=== PATIENT | male | born 1935 | race Two or more races ===

== ENCOUNTER 2020-01-27 21:17 | Emergency (ER) | payer MEDICARE, OTHER ==
[~2020-01-27] VITALS: Ht 175.3 cm; Wt 82.6 kg
--- NOTE | 2020-01-27 21:30 | NUR ---
PT BIBA C/O GENERALIZED WEAKNESS, UNABLE TO SLEEP AND EAT, ABDOMINAL PAIN +DIARRHEA X 3 DAYS. PT HAS L ANKLE SWELLING AND REDNESS. PT AAOX4, VSS, RESPIRATIONS EVEN AND UNLABORED ON RA W/ NAD NOTED. PT CONNECTED TO THE ADJUSTMENT SUPERVISOR AND POX
--- NOTE | 2020-01-27 22:25 | NUR ---
BLOOD COLLECTED AND SENT TO LAB
[2020-01-27] MEDS ORDERED: IV NS 0.9% 1,000 ML BAG IV ONE (22:30)
--- NOTE | 2020-01-27 22:32 | NUR ---
XRAY AT BEDSIDE
[2020-01-27 22:45] LABS: BASOPHILS % (AUTO) 0.4 % (0.0-2.0); EOSINOPHILS % (AUTO) 0.2 % (0.0-6.0); HEMATOCRIT 50 % (39-51); HEMOGLOBIN 17.3 g/dL (13.5-17.5); LYMPHOCYTES # (AUTO) 0.7 /CMM (0.8-4.8); LYMPHOCYTES % (AUTO) 6.6 % (20.0-44.0); MEAN CORPUSCULAR HGB CONC 34 g/dl (31.0-36.0); MEAN CORPUSCULAR VOLUME 93 fL (80-96); MONOCYTES # (AUTO) 1.1 /CMM (0.1-1.30); MONOCYTES % (AUTO) 10.2 % (2.0-12.0); NEUTROPHILS # (AUTO) 8.6 /CMM (1.8-8.9); NEUTROPHILS % (AUTO) 82.6 % (43.0-81.0); PLATELET COUNT (AUTO) 175 /CMM (150-450); RED BLOOD CELL COUNT(AUTO) 5.42 MIL/uL (4.5-6.0); WHITE BLOOD COUNT (AUTO) 10.5 K/uL (4.3-11.0)
[2020-01-27] MEDS ORDERED: IOHEXOL-300 100 ML VIAL IV ONE (22:54)
[2020-01-27] MEDS ORDERED: CT SWABBABLE VALVE TRANS SET 1 EA INFUS.SET MC ONE (22:54)
[2020-01-27 22:55] LABS: CALCIUM, SERUM 9.8 mg/dL (8.5-10.1); CARBON DIOXIDE 27 mmol/L (21-32); CHLORIDE 101 mmol/L (98-107); CREATININE 2.1 mg/dL (0.6-1.3); GLUCOSE 214 mg/dL (74-106); POTASSIUM 4.2 mmol/L (3.5-5.1); SODIUM SERUM 136 mmol/L (136-145); UREA NITROGEN, BLOOD 35 mg/dL (7-18)
[2020-01-27] MEDS ORDERED: IV NS 0.9% 0 ML IV ONE (22:55)
[2020-01-27 23:06] LABS: ALANINE AMINOTRANSFERASE 19 U/L (12-78); ALBUMIN 3.6 g/dL (3.4-5.0); ALKALINE PHOSPHATASE 56 U/L (46-116); ASPARTATE AMINOTRANSFERASE 16 U/L (15-37); BILIRUBIN,DIRECT 0.5 mg/dL (0.0-0.2); LIPASE 61 U/L (73-393); TOTAL PROTEIN, SERUM 6.9 g/dL (6.4-8.2)
--- NOTE | 2020-01-27 23:06 | NUR ---
DR STARKS [phone]
--- NOTE | 2020-01-28 00:19 | NUR ---
URINE COLLECTED AND SENT TO LAB
[2020-01-28 00:27] LABS: APPEARANCE,URINE Clear (CLEAR); BILIRUBIN,URINE SMALL (NEGATIVE); BLOOD, URINE Moderate Ery/uL (NEGATIVE); COLOR,URINE Yellow (YELLOW); KETONES,URINE Negative (NEGATIVE); LEUKOCYTE ESTERASE ,URINE Negative (NEGATIVE); NITRITE, URINE Negative (NEGATIVE); PROTEIN,URINE 100 mg/dl (NEGATIVE); UGLUCOSE >=1000 mg/dL (NEGATIVE); UROBILINOGEN,URINE 0.2 EU/dL (0.2)
[2020-01-28 00:45] LABS: BACTERIA,URINE None seen /HPF (None Seen); SQUAMOUS EPITHELIAL CELL,UR Few /HPF (None Seen); URIC ACID CRYSTALS,URINE Many /HPF (None Seen)
[2020-01-28 00:46] LABS: MUCUS,URINE Moderate /LPF (None Seen)
[2020-01-28] MEDS ORDERED: oxyCODONE/APAP (5/325 MG) 1 UDTAB TABLET PO ONE (01:00)
[2020-01-28] MEDS ORDERED: oxyCODONE/APAP (5/325 MG) 1 UDTAB TABLET ONE (01:25)
--- NOTE | 2020-01-28 01:38 | NUR ---
Patient discharged to home in stable condition. Written and verbal after care instructions given. Patient verbalizes understanding of instruction.pt. ambulatory with a steady gait
[2020-01-28 01:39] VITALS: BP 121/84
== END 2020-01-28 01:39 | disposition home or self-care (01) ==
LOC: ER 21:18
DX: S82.442A Displaced spiral fracture of shaft of left fibula, initial encounter for closed fracture (principal); S82.892A Other fracture of left lower leg, initial encounter for closed fracture; N20.0 Calculus of kidney; R19.7 Diarrhea, unspecified; Z98.890 Other specified postprocedural states; Z60.2 Problems related to living alone; W18.39XA Other fall on same level, initial encounter; Y93.89 Activity, other specified; Y92.89 Other specified places as the place of occurrence of the external cause; Y99.8 Other external cause status
CPT/HCPCS: 36415; 73610; 74176; 80048; 80076; 81001; 83690; 84484; 85025; 93005; 96360; 99285; J7030; 81000-TC; J7050; Q9967

== ENCOUNTER 2020-08-10 16:22 | Inpatient (IN) | payer BC, MEDICARE, OTHER ==
[~2020-08-10] VITALS: Ht 172.7 cm; Wt 59.9 kg
[2020-08-10] MEDS ORDERED: IV NS 0.9% 1,000 ML BAG IV ONE (17:00)
[2020-08-10 17:05] LABS: BASOPHILS % (AUTO) 0.4 % (0.0-2.0); HEMATOCRIT 53 % (39-51); HEMOGLOBIN 18.1 g/dL (13.5-17.5); LYMPHOCYTES # (AUTO) 0.5 /CMM (0.8-4.8); LYMPHOCYTES % (AUTO) 6.8 % (20.0-44.0); MEAN CORPUSCULAR HGB CONC 34 g/dl (31.0-36.0); MEAN CORPUSCULAR VOLUME 93 fL (80-96); MONOCYTES # (AUTO) 0.4 /CMM (0.1-1.30); MONOCYTES % (AUTO) 5.2 % (2.0-12.0); NEUTROPHILS # (AUTO) 6.8 /CMM (1.8-8.9); NEUTROPHILS % (AUTO) 87.6 % (43.0-81.0); PLATELET COUNT (AUTO) 225 /CMM (150-450); RED BLOOD CELL COUNT(AUTO) 5.73 MIL/uL (4.5-6.0); WHITE BLOOD COUNT (AUTO) 7.8 K/uL (4.3-11.0)
[2020-08-10] MEDS ORDERED: TAMS-12 PO (17:17)
[2020-08-10] MEDS ORDERED: TRAZ-182 PO (17:17)
[2020-08-10] MEDS ORDERED: CLOP75TA15 PO (17:17)
[2020-08-10] MEDS ORDERED: ROSU10TA2 PO (17:17)
[2020-08-10] MEDS ORDERED: DULO60CA45 PO (17:17)
[2020-08-10] MEDS ORDERED: AMPH20TA3 PO (17:17)
[2020-08-10] MEDS ORDERED: APIX2.5T PO (17:17)
[2020-08-10] MEDS ORDERED: RANO10003 PO (17:17)
[2020-08-10] MEDS ORDERED: EMPA1TAB9 PO (17:17)
[2020-08-10 17:20] LABS: ALANINE AMINOTRANSFERASE 27 U/L (12-78); ALBUMIN 3.5 g/dL (3.4-5.0); ALKALINE PHOSPHATASE 61 U/L (46-116); ASPARTATE AMINOTRANSFERASE 57 U/L (15-37); BILIRUBIN,DIRECT 0.5 mg/dL (0.0-0.2); BILIRUBIN,TOTAL 1.7 mg/dL (0.2-1.0); CALCIUM, SERUM 10.2 mg/dL (8.5-10.1); CARBON DIOXIDE 25 mmol/L (21-32); CHLORIDE 97 mmol/L (98-107); CREATININE 1.5 mg/dL (0.6-1.3); GLUCOSE 120 mg/dL (74-106); LIPASE 108 U/L (73-393); POTASSIUM 4.5 mmol/L (3.5-5.1); SODIUM SERUM 135 mmol/L (136-145); TOTAL PROTEIN, SERUM 8.5 g/dL (6.4-8.2); UREA NITROGEN, BLOOD 39 mg/dL (7-18)
[2020-08-10 17:40] LABS: BAND % (MANUAL) 3 % (0.0-5.0); LYMPHOCYTES % (MANUAL) 6 % (16-48); MONOCYTES % (MANUAL) 3 % (0-11.0); NEUTROPHILS % (MANUAL) 88 (42-76)
[2020-08-10] MEDS ORDERED: ASPIRIN 81 MG TAB.CHEW PO ONE (19:00)
[2020-08-10] MEDS ORDERED: HYDROCODONE/APAP 5/325MG TABLET PO PRN (20:00)
[2020-08-10] MEDS ORDERED: ZOLPIDEM TARTRATE 5 MG TABLET PO PRN (20:00)
[2020-08-10] MEDS ORDERED: ACETAMINOPHEN 325 MG TABLET PO PRN (20:00)
[2020-08-10] MEDS ORDERED: ONDANSETRON HCL/PF 4 MG/2 ML VIAL IVP PRN (20:00)
[2020-08-10] MEDS: RANOLAZINE 500 MG TAB.ER.12H PO SCH (20:00)
[2020-08-10] MEDS ORDERED: MAGNESIUM HYDROXIDE 30 ML UDC PO PRN (20:00)
[2020-08-10 20:42] LABS: D-DIMER 3.72 mg/L(FEU (0.17-0.50)
[2020-08-10] MEDS ORDERED: Medication Not On Formulary EA (Amphet Asp/Amphet/D-Amphet (Adderall 20 Mg Tablet) 20 MG PO SCH (21:00)
[2020-08-10] MEDS ORDERED: HEPARIN SODIUM, PORCINE 5000 UNITS/1 ML VIAL SQ SCH (21:00)
[2020-08-10 21:54] LABS: BILIRUBIN,URINE SMALL (NEGATIVE); COLOR,URINE YELLOW (YELLOW); LEUKOCYTE ESTERASE ,URINE Negative (NEGATIVE); NITRITE, URINE Negative (NEGATIVE); PH,URINE 5.5 (5.0-8.0); PROTEIN,URINE >=300 mg/dl (NEGATIVE); UGLUCOSE Negative (NEGATIVE); UROBILINOGEN,URINE 0.2 EU/dL (0.2)
[2020-08-10 21:55] VITALS: BP 132/78
[2020-08-10 22:03] LABS: BACTERIA,URINE Few /HPF (None Seen); SQUAMOUS EPITHELIAL CELL,UR Few /HPF (None Seen); WBC,URINE 0-2 /HPF (0-3)
[2020-08-10] MEDS: ATORVASTATIN 10 MG TABLET PO SCH (23:14)
[2020-08-10] MEDS: IV NS 0.9% 1,000 ML IV PRN (23:15)
[2020-08-10] MEDS: TRAZODONE 50 MG TABLET PO SCH (23:15)
[2020-08-11] VITALS (7 sets, daily range): BP systolic 103–158; BP diastolic 44–78
[2020-08-11 06:27] LABS: BASOPHILS % (AUTO) 0.4 % (0.0-2.0); HEMATOCRIT 44 % (39-51); HEMOGLOBIN 15.1 g/dL (13.5-17.5); LYMPHOCYTES # (AUTO) 0.4 /CMM (0.8-4.8); LYMPHOCYTES % (AUTO) 6.4 % (20.0-44.0); MEAN CORPUSCULAR HGB CONC 34 g/dl (31.0-36.0); MEAN CORPUSCULAR VOLUME 93 fL (80-96); MONOCYTES # (AUTO) 0.3 /CMM (0.1-1.30); MONOCYTES % (AUTO) 5.2 % (2.0-12.0); NEUTROPHILS # (AUTO) 5.6 /CMM (1.8-8.9); PLATELET COUNT (AUTO) 190 /CMM (150-450); RED BLOOD CELL COUNT(AUTO) 4.76 MIL/uL (4.5-6.0); WHITE BLOOD COUNT (AUTO) 6.4 K/uL (4.3-11.0)
[2020-08-11 07:17] LABS: CALCIUM, SERUM 9.5 mg/dL (8.5-10.1); CREATININE 1.3 mg/dL (0.6-1.3); MAGNESIUM 1.9 mg/dL (1.8-2.4); PHOSPHORUS 3.2 mg/dL (2.5-4.9); POTASSIUM 4.2 mmol/L (3.5-5.1)
[2020-08-11] MEDS: TAMSULOSIN 0.4 MG CAP.SR.24H PO SCH (08:34)
[2020-08-11] MEDS: DULOXETINE HCL 30 MG CAPSULE.DR PO SCH (08:34)
[2020-08-11] MEDS: APIXABAN 2.5 MG TABLET PO SCH ×2 (08:35→16:48)
[2020-08-11] MEDS: IV NS 0.9% 1,000 ML IV PRN ×2 (09:56→19:35)
[2020-08-11] MEDS: RANOLAZINE 500 MG TAB.ER.12H PO SCH ×2 (10:08→16:48)
[2020-08-11] MEDS ORDERED: Z GUARD REMEDY 2 OZ OINT TP PRN (10:30)
[2020-08-11] MEDS: ENSURE ENLIVE CHOC 237 ML CAN PO SCH ×2 (11:02→16:49)
[2020-08-11] MEDS: Z GUARD REMEDY 2 OZ OINT TP SCH (11:03)
[2020-08-11 12:17] LABS: ALBUMIN 2.4 g/dL (3.4-5.0); BILIRUBIN,DIRECT 0.5 mg/dL (0.0-0.2); BILIRUBIN,TOTAL 1.3 mg/dL (0.2-1.0); TOTAL PROTEIN, SERUM 5.9 g/dL (6.4-8.2)
[2020-08-11] MEDS: ATORVASTATIN 10 MG TABLET PO SCH (22:05)
[2020-08-11] MEDS: TRAZODONE 50 MG TABLET PO SCH (22:05)
[2020-08-12] VITALS (7 sets, daily range): BP systolic 100–148; BP diastolic 59–77
[2020-08-12] MEDS: IV NS 0.9% 1,000 ML IV PRN ×2 (05:41→15:54)
[2020-08-12 06:04] LABS: CALCIUM, SERUM 9.4 mg/dL (8.5-10.1); CREATININE 1.3 mg/dL (0.6-1.3); MAGNESIUM 1.9 mg/dL (1.8-2.4); PHOSPHORUS 2.9 mg/dL (2.5-4.9)
[2020-08-12 06:05] LABS: BASOPHILS % (AUTO) 0.5 % (0.0-2.0); HEMATOCRIT 42 % (39-51); HEMOGLOBIN 14.2 g/dL (13.5-17.5); LYMPHOCYTES # (AUTO) 0.4 /CMM (0.8-4.8); LYMPHOCYTES % (AUTO) 5.5 % (20.0-44.0); MEAN CORPUSCULAR HGB CONC 34 g/dl (31.0-36.0); MEAN CORPUSCULAR VOLUME 92 fL (80-96); MONOCYTES # (AUTO) 0.3 /CMM (0.1-1.30); NEUTROPHILS # (AUTO) 5.7 /CMM (1.8-8.9); PLATELET COUNT (AUTO) 177 /CMM (150-450); RED BLOOD CELL COUNT(AUTO) 4.52 MIL/uL (4.5-6.0); WHITE BLOOD COUNT (AUTO) 6.4 K/uL (4.3-11.0)
[2020-08-12] MEDS: ENSURE ENLIVE CHOC 237 ML CAN PO SCH ×2 (09:17→17:13)
[2020-08-12] MEDS: TAMSULOSIN 0.4 MG CAP.SR.24H PO SCH (09:18)
[2020-08-12] MEDS: DULOXETINE HCL 30 MG CAPSULE.DR PO SCH (09:18)
[2020-08-12] MEDS: RANOLAZINE 500 MG TAB.ER.12H PO SCH ×2 (09:19→16:37)
[2020-08-12] MEDS: CLOPIDOGREL BISULFATE 75 MG TABLET PO SCH (09:21)
[2020-08-12] MEDS: APIXABAN 2.5 MG TABLET PO SCH ×2 (09:28→17:02)
[2020-08-12] MEDS: Z GUARD REMEDY 2 OZ OINT TP SCH (09:29)
[2020-08-12] MEDS: CARVEDILOL 3.125 MG TABLET PO SCH ×2 (10:29→16:37)
[2020-08-12] MEDS: AZITHROMYCIN 250 MG TABLET PO SCH (20:16)
[2020-08-12] MEDS: CEFTRIAXONE 1 G in IV D5W 50 ML IV SCH (21:01)
[2020-08-12] MEDS: TRAZODONE 50 MG TABLET PO SCH (21:02)
[2020-08-12] MEDS: ATORVASTATIN 10 MG TABLET PO SCH (21:02)
[2020-08-13] VITALS (7 sets, daily range): BP systolic 102–141; BP diastolic 61–90
[2020-08-13] MEDS: IV NS 0.9% 1,000 ML IV PRN ×2 (00:39→13:04)
[2020-08-13] MEDS ORDERED: KEY,NONCONTROL,TO KEEP IN PYXI 1 EA MC ONE ×3 (07:47→13:43)
[2020-08-13] MEDS: ENSURE ENLIVE CHOC 237 ML CAN PO SCH ×2 (08:52→16:52)
[2020-08-13] MEDS: DULOXETINE HCL 30 MG CAPSULE.DR PO SCH (09:14)
[2020-08-13] MEDS: Z GUARD REMEDY 2 OZ OINT TP SCH (09:14)
[2020-08-13] MEDS: AMPHETAMINE SALTS 20 MG PO SCH ×2 (09:14→13:52)
[2020-08-13] MEDS: CARVEDILOL 3.125 MG TABLET PO SCH ×2 (09:14→16:48)
[2020-08-13] MEDS: TAMSULOSIN 0.4 MG CAP.SR.24H PO SCH (09:14)
[2020-08-13] MEDS: RANOLAZINE 500 MG TAB.ER.12H PO SCH ×2 (09:14→16:55)
[2020-08-13] MEDS: APIXABAN 2.5 MG TABLET PO SCH ×2 (09:15→16:49)
[2020-08-13] MEDS: AZITHROMYCIN 250 MG TABLET PO SCH (19:51)
[2020-08-13] MEDS: CEFTRIAXONE 1 G in IV D5W 50 ML IV SCH (19:52)
[2020-08-13] MEDS: TRAZODONE 50 MG TABLET PO SCH (21:23)
[2020-08-13] MEDS: ATORVASTATIN 10 MG TABLET PO SCH (21:23)
[2020-08-14] VITALS (32 sets, daily range): BP systolic 66–170; BP diastolic 38–113
[2020-08-14] MEDS: IV NS 0.9% 1,000 ML IV PRN (05:01)
[2020-08-14 06:51] LABS: BASOPHILS % (AUTO) 0.1 % (0.0-2.0); EOSINOPHILS % (AUTO) 0.2 % (0.0-6.0); HEMATOCRIT 43 % (39-51); HEMOGLOBIN 14.5 g/dL (13.5-17.5); LYMPHOCYTES # (AUTO) 0.3 /CMM (0.8-4.8); LYMPHOCYTES % (AUTO) 3.9 % (20.0-44.0); MEAN CORPUSCULAR HGB CONC 34 g/dl (31.0-36.0); MEAN CORPUSCULAR VOLUME 93 fL (80-96); MONOCYTES # (AUTO) 0.5 /CMM (0.1-1.30); MONOCYTES % (AUTO) 6.2 % (2.0-12.0); NEUTROPHILS # (AUTO) 7.9 /CMM (1.8-8.9); NEUTROPHILS % (AUTO) 89.6 % (43.0-81.0); PLATELET COUNT (AUTO) 205 /CMM (150-450); RED BLOOD CELL COUNT(AUTO) 4.61 MIL/uL (4.5-6.0); WHITE BLOOD COUNT (AUTO) 8.8 K/uL (4.3-11.0)
[2020-08-14 07:13] LABS: CALCIUM, SERUM 9.7 mg/dL (8.5-10.1); CREATININE 1.2 mg/dL (0.6-1.3); MAGNESIUM 1.8 mg/dL (1.8-2.4); PHOSPHORUS 3.3 mg/dL (2.5-4.9); POTASSIUM 4.6 mmol/L (3.5-5.1)
[2020-08-14] MEDS: ENSURE ENLIVE CHOC 237 ML CAN PO SCH (08:41)
[2020-08-14] MEDS: DULOXETINE HCL 30 MG CAPSULE.DR PO SCH (08:41)
[2020-08-14] MEDS: TAMSULOSIN 0.4 MG CAP.SR.24H PO SCH (08:41)
[2020-08-14] MEDS: RANOLAZINE 500 MG TAB.ER.12H PO SCH ×2 (08:41→17:00)
[2020-08-14] MEDS: CLOPIDOGREL BISULFATE 75 MG TABLET PO SCH (08:42)
[2020-08-14] MEDS: CARVEDILOL 3.125 MG TABLET PO SCH ×2 (08:42→17:00)
[2020-08-14] MEDS: APIXABAN 2.5 MG TABLET PO SCH ×2 (08:43→18:37)
[2020-08-14] MEDS: Z GUARD REMEDY 2 OZ OINT TP SCH (08:44)
[2020-08-14] MEDS: AMPHETAMINE SALTS 20 MG PO SCH (09:58)
[2020-08-14] MEDS ORDERED: FUROSEMIDE 20 MG/2 ML VIAL IV ONE (10:30)
[2020-08-14 10:39] LABS: ABG BASE EXCESS -3.7 mmol/L; ABG OXYGEN SATURATION 98.7 % (92.0-98.5); ABG PCO2 39.6 mmHg (35.0-45.0); ABG PH 7.352 (7.350-7.450); ABG PO2 151.3 mmHg (75.0-100.0); AaDO2 522.1 mmHg; COHb 0.8 % (0.5-1.5); MetHb 0.3 % (0.0-1.5); O2Hb 97.6 % (94.0-97.0); SITE, ABG Left Radial; VENT MODE, BG NRB 100%
[2020-08-14] MEDS: DEXAMETHASONE SOD PHOSPHATE 10 MG/ML VIAL IV SCH (11:47)
[2020-08-14] MEDS: LISINOPRIL (5MG) 5 MG TABLET PO SCH (11:51)
[2020-08-14 12:37] LABS: ABG BASE EXCESS -4.7 mmol/L; ABG OXYGEN SATURATION 83.9 % (92.0-98.5); ABG PCO2 34.5 mmHg (35.0-45.0); ABG PH 7.373 (7.350-7.450); ABG PO2 49.3 mmHg (75.0-100.0); AaDO2 225.1 mmHg; COHb 1.2 % (0.5-1.5); MetHb 0.1 % (0.0-1.5); O2Hb 82.8 % (94.0-97.0); SITE, ABG Left Radial; VENT MODE, BG N/C 6LPM
[2020-08-14] MEDS ORDERED: REMDESIVIR (CHARGED) 200 MG, *LOADING DOSE 1 EA in IV NS 0.9% 210 ML IV ONE (13:00)
[2020-08-14] MEDS ORDERED: BUMETANIDE INJ 4 MG in IV NS 0.9% 24 ML IV ONE (14:00)
[2020-08-14] MEDS ORDERED: BUMETANIDE INJ 4 MG in IV D5W 24 ML IV ONE (14:00)
[2020-08-14] MEDS ORDERED: SUCCINYLCHOLINE CHLORIDE 20 MG/ML VIAL ONE (14:01)
[2020-08-14] MEDS ORDERED: ETOMIDATE 2 MG/ML VIAL ONE (14:01)
[2020-08-14] MEDS ORDERED: IV NS 0.9% 500 ML IV ONE (15:30)
[2020-08-14 15:31] LABS: ABG BASE EXCESS -4.9 mmol/L; ABG OXYGEN SATURATION 99.2 % (92.0-98.5); ABG PCO2 29.4 mmHg (35.0-45.0); ABG PH 7.414 (7.350-7.450); ABG PO2 241.8 mmHg (75.0-100.0); AaDO2 441.8 mmHg; COHb 0.7 % (0.5-1.5); MetHb 0.3 % (0.0-1.5); O2Hb 98.2 % (94.0-97.0); PEEP,BG 5 cm H2O; SITE, ABG Left Radial; VENT MODE, BG AC 100%; VT, ABG 500 mL
[2020-08-14] MEDS: NOREPINEPHRINE 8 MG in IV NS 0.9% 242 ML IV PRN (15:48)
[2020-08-14] MEDS ORDERED: DOBUTamine 500 MG in IV D5W 210 ML IV PRN (16:00)
[2020-08-14] MEDS: PROPOFOL 10MG/ML 50ML 50 ML IV PRN ×3 (18:32→23:08)
[2020-08-14] MEDS: AZITHROMYCIN 250 MG TABLET PO SCH (20:22)
[2020-08-14] MEDS: CEFTRIAXONE 1 G in IV D5W 50 ML IV SCH (21:04)
[2020-08-14] MEDS: ATORVASTATIN 10 MG TABLET PO SCH (21:46)
[2020-08-15] VITALS (86 sets, daily range): BP systolic 92–127; BP diastolic 45–72
[2020-08-15] MEDS: PROPOFOL 10MG/ML 50ML 50 ML IV PRN ×9 (01:37→22:34)
[2020-08-15 04:40] LABS: BASOPHILS % (AUTO) 0.3 % (0.0-2.0); HEMATOCRIT 40 % (39-51); HEMOGLOBIN 13.7 g/dL (13.5-17.5); LYMPHOCYTES # (AUTO) 0.5 /CMM (0.8-4.8); LYMPHOCYTES % (AUTO) 4.8 % (20.0-44.0); MEAN CORPUSCULAR HGB CONC 34 g/dl (31.0-36.0); MEAN CORPUSCULAR VOLUME 93 fL (80-96); MONOCYTES # (AUTO) 0.8 /CMM (0.1-1.30); MONOCYTES % (AUTO) 7.4 % (2.0-12.0); NEUTROPHILS # (AUTO) 8.9 /CMM (1.8-8.9); NEUTROPHILS % (AUTO) 87.5 % (43.0-81.0); PLATELET COUNT (AUTO) 198 /CMM (150-450); WHITE BLOOD COUNT (AUTO) 10.2 K/uL (4.3-11.0)
[2020-08-15 04:48] LABS: ALANINE AMINOTRANSFERASE 31 U/L (12-78); ALBUMIN 2.2 g/dL (3.4-5.0); ALKALINE PHOSPHATASE 81 U/L (46-116); ASPARTATE AMINOTRANSFERASE 45 U/L (15-37); BILIRUBIN,DIRECT 0.2 mg/dL (0.0-0.2); BILIRUBIN,TOTAL 0.7 mg/dL (0.2-1.0); CARBON DIOXIDE 23 mmol/L (21-32); CHLORIDE 106 mmol/L (98-107); CREATININE 1.5 mg/dL (0.6-1.3); GLUCOSE 250 mg/dL (74-106); MAGNESIUM 1.8 mg/dL (1.8-2.4); PHOSPHORUS 3.6 mg/dL (2.5-4.9); POTASSIUM 4.4 mmol/L (3.5-5.1); SODIUM SERUM 140 mmol/L (136-145); UREA NITROGEN, BLOOD 39 mg/dL (7-18)
[2020-08-15 05:32] LABS: ABG BASE EXCESS -0.4 mmol/L; ABG OXYGEN SATURATION 95.6 % (92.0-98.5); ABG PCO2 39.7 mmHg (35.0-45.0); ABG PH 7.403 (7.350-7.450); ABG PO2 83.7 mmHg (75.0-100.0); AaDO2 228.1 mmHg; COHb 1.1 % (0.5-1.5); MetHb 0.3 % (0.0-1.5); O2Hb 94.3 % (94.0-97.0); PEEP,BG 5 cm H2O; SITE, ABG Right Radial; VENT MODE, BG AC 16 500 50% +5; VT, ABG 500 mL
[2020-08-15] MEDS: ENSURE ENLIVE CHOC 237 ML CAN PO SCH ×2 (08:00→16:26)
[2020-08-15] MEDS: CARVEDILOL 3.125 MG TABLET PO SCH ×2 (09:00→16:26)
[2020-08-15] MEDS: LISINOPRIL (5MG) 5 MG TABLET PO SCH (09:00)
[2020-08-15] MEDS: DEXAMETHASONE SOD PHOSPHATE 10 MG/ML VIAL IV SCH (09:11)
[2020-08-15] MEDS: RANOLAZINE 500 MG TAB.ER.12H PO SCH ×2 (09:11→16:26)
[2020-08-15] MEDS: DULOXETINE HCL 30 MG CAPSULE.DR PO SCH (09:11)
[2020-08-15] MEDS: TAMSULOSIN 0.4 MG CAP.SR.24H PO SCH (09:11)
[2020-08-15] MEDS: Z GUARD REMEDY 2 OZ OINT TP SCH (09:12)
[2020-08-15] MEDS: APIXABAN 2.5 MG TABLET PO SCH ×2 (09:14→16:29)
[2020-08-15] MEDS ORDERED: REMDESIVIR (CHARGED) 100 MG in IV NS 0.9% 230 ML IV SCH (10:30)
[2020-08-15] MEDS: AMPHETAMINE SALTS 20 MG PO SCH ×2 (10:30→14:15)
[2020-08-15] MEDS: NOREPINEPHRINE 8 MG in IV NS 0.9% 242 ML IV PRN (10:39)
[2020-08-15] MEDS ORDERED: REMDESIVIR (CHARGED) 100 MG in IV NS 0.9% 100 ML IV SCH (13:00)
[2020-08-15] MEDS ORDERED: BUMETANIDE INJ 4 MG in IV D5W 24 ML IV ONE (16:00)
[2020-08-15] MEDS: CEFTRIAXONE 1 G in IV D5W 50 ML IV SCH (21:03)
[2020-08-15] MEDS: ATORVASTATIN 10 MG TABLET PO SCH (21:25)
[2020-08-15] MEDS: AZITHROMYCIN 250 MG TABLET PO SCH (21:25)
[2020-08-16] VITALS (95 sets, daily range): BP systolic 102–140; BP diastolic 54–79
[2020-08-16] MEDS: PROPOFOL 10MG/ML 50ML 50 ML IV PRN ×11 (01:19→23:03)
[2020-08-16 05:21] LABS: BASOPHILS % (AUTO) 0.2 % (0.0-2.0); EOSINOPHILS % (AUTO) 0.1 % (0.0-6.0); HEMATOCRIT 40 % (39-51); HEMOGLOBIN 13.7 g/dL (13.5-17.5); LYMPHOCYTES # (AUTO) 0.5 /CMM (0.8-4.8); LYMPHOCYTES % (AUTO) 4.4 % (20.0-44.0); MEAN CORPUSCULAR HGB CONC 34 g/dl (31.0-36.0); MEAN CORPUSCULAR VOLUME 92 fL (80-96); MONOCYTES # (AUTO) 0.6 /CMM (0.1-1.30); MONOCYTES % (AUTO) 5.5 % (2.0-12.0); NEUTROPHILS # (AUTO) 10.1 /CMM (1.8-8.9); NEUTROPHILS % (AUTO) 89.8 % (43.0-81.0); RED BLOOD CELL COUNT(AUTO) 4.39 MIL/uL (4.5-6.0); WHITE BLOOD COUNT (AUTO) 11.3 K/uL (4.3-11.0)
[2020-08-16 05:43] LABS: ALANINE AMINOTRANSFERASE 29 U/L (12-78); ALBUMIN 2.1 g/dL (3.4-5.0); ALKALINE PHOSPHATASE 77 U/L (46-116); ASPARTATE AMINOTRANSFERASE 31 U/L (15-37); BILIRUBIN,DIRECT 0.2 mg/dL (0.0-0.2); BILIRUBIN,TOTAL 0.5 mg/dL (0.2-1.0); CALCIUM, SERUM 9.7 mg/dL (8.5-10.1); CARBON DIOXIDE 28 mmol/L (21-32); CHLORIDE 106 mmol/L (98-107); CREATININE 1.7 mg/dL (0.6-1.3); GLUCOSE 214 mg/dL (74-106); POTASSIUM 4.1 mmol/L (3.5-5.1); SODIUM SERUM 143 mmol/L (136-145); UREA NITROGEN, BLOOD 49 mg/dL (7-18)
[2020-08-16 05:45] LABS: PLATELET COUNT (AUTO) 192 /CMM (150-450)
[2020-08-16 08:37] LABS: CALCIUM, SERUM 9.7 mg/dL (8.5-10.1); CARBON DIOXIDE 28 mmol/L (21-32); CHLORIDE 106 mmol/L (98-107); CREATININE 1.8 mg/dL (0.6-1.3); GLUCOSE 194 mg/dL (74-106); POTASSIUM 3.9 mmol/L (3.5-5.1); SODIUM SERUM 144 mmol/L (136-145); UREA NITROGEN, BLOOD 52 mg/dL (7-18)
[2020-08-16] MEDS: RANOLAZINE 500 MG TAB.ER.12H PO SCH (09:00)
[2020-08-16] MEDS: DULOXETINE HCL 30 MG CAPSULE.DR PO SCH (09:21)
[2020-08-16] MEDS: CLOPIDOGREL BISULFATE 75 MG TABLET PO SCH (09:21)
[2020-08-16] MEDS: TAMSULOSIN 0.4 MG CAP.SR.24H PO SCH (09:21)
[2020-08-16] MEDS: ENSURE ENLIVE CHOC 237 ML CAN PO SCH ×2 (09:22→17:23)
[2020-08-16] MEDS: Z GUARD REMEDY 2 OZ OINT TP SCH (09:22)
[2020-08-16] MEDS: APIXABAN 2.5 MG TABLET PO SCH ×2 (09:22→17:23)
[2020-08-16] MEDS: DEXAMETHASONE SOD PHOSPHATE 10 MG/ML VIAL IV SCH (09:22)
[2020-08-16] MEDS: AMPHETAMINE SALTS 20 MG PO SCH ×2 (09:37→13:37)
[2020-08-16] MEDS ORDERED: REMDESIVIR (CHARGED) 100 MG in IV NS 0.9% 100 ML IV SCH (12:00)
[2020-08-16] MEDS: CEFTRIAXONE 1 G in IV D5W 50 ML IV SCH (20:38)
[2020-08-16] MEDS: AZITHROMYCIN 250 MG TABLET PO SCH (20:38)
[2020-08-16] MEDS: ATORVASTATIN 10 MG TABLET PO SCH (21:29)
[2020-08-17] VITALS (80 sets, daily range): BP systolic 94–160; BP diastolic 49–90
[2020-08-17] MEDS: PROPOFOL 10MG/ML 50ML 50 ML IV PRN ×5 (01:04→23:18)
[2020-08-17 05:20] LABS: BASOPHILS % (AUTO) 0.1 % (0.0-2.0); EOSINOPHILS % (AUTO) 0.1 % (0.0-6.0); HEMATOCRIT 41 % (39-51); HEMOGLOBIN 13.7 g/dL (13.5-17.5); LYMPHOCYTES # (AUTO) 0.6 /CMM (0.8-4.8); LYMPHOCYTES % (AUTO) 5.7 % (20.0-44.0); MEAN CORPUSCULAR HGB CONC 34 g/dl (31.0-36.0); MEAN CORPUSCULAR VOLUME 92 fL (80-96); MONOCYTES # (AUTO) 0.8 /CMM (0.1-1.30); MONOCYTES % (AUTO) 8.7 % (2.0-12.0); NEUTROPHILS # (AUTO) 8.3 /CMM (1.8-8.9); NEUTROPHILS % (AUTO) 85.4 % (43.0-81.0); PLATELET COUNT (AUTO) 175 /CMM (150-450); RED BLOOD CELL COUNT(AUTO) 4.39 MIL/uL (4.5-6.0); WHITE BLOOD COUNT (AUTO) 9.7 K/uL (4.3-11.0)
[2020-08-17 05:31] LABS: ALANINE AMINOTRANSFERASE 28 U/L (12-78); ALBUMIN 2.2 g/dL (3.4-5.0); ALKALINE PHOSPHATASE 72 U/L (46-116); ASPARTATE AMINOTRANSFERASE 33 U/L (15-37); BILIRUBIN,DIRECT 0.2 mg/dL (0.0-0.2); BILIRUBIN,TOTAL 0.6 mg/dL (0.2-1.0); CALCIUM, SERUM 9.4 mg/dL (8.5-10.1); CARBON DIOXIDE 30 mmol/L (21-32); CHLORIDE 108 mmol/L (98-107); CREATININE 1.8 mg/dL (0.6-1.3); GLUCOSE 202 mg/dL (74-106); POTASSIUM 4.4 mmol/L (3.5-5.1); SODIUM SERUM 144 mmol/L (136-145); TOTAL PROTEIN, SERUM 5.9 g/dL (6.4-8.2); UREA NITROGEN, BLOOD 60 mg/dL (7-18)
[2020-08-17 09:19] LABS: ABG BASE EXCESS 2.1 mmol/L; ABG OXYGEN SATURATION 94.3 % (92.0-98.5); ABG PCO2 41.9 mmHg (35.0-45.0); ABG PH 7.423 (7.350-7.450); ABG PO2 74.5 mmHg (75.0-100.0); AaDO2 126.3 mmHg; COHb 0.6 % (0.5-1.5); O2Hb 93.7 % (94.0-97.0); SITE, ABG Right Radial; VENT MODE, BG simv 4 ps15 35% +5
[2020-08-17] MEDS: DEXAMETHASONE SOD PHOSPHATE 10 MG/ML VIAL IV SCH (10:32)
[2020-08-17] MEDS: TAMSULOSIN 0.4 MG CAP.SR.24H PO SCH (10:32)
[2020-08-17] MEDS: DULOXETINE HCL 30 MG CAPSULE.DR PO SCH (10:35)
[2020-08-17] MEDS: ENSURE ENLIVE CHOC 237 ML CAN PO SCH ×2 (10:36→17:00)
[2020-08-17] MEDS: APIXABAN 2.5 MG TABLET PO SCH ×2 (10:38→17:23)
[2020-08-17] MEDS: Z GUARD REMEDY 2 OZ OINT TP SCH (10:40)
[2020-08-17] MEDS: AMPHETAMINE SALTS 20 MG PO SCH ×2 (10:51→14:00)
[2020-08-17] MEDS: CEFTRIAXONE 1 G in IV D5W 50 ML IV SCH (20:44)
[2020-08-17] MEDS: AZITHROMYCIN 250 MG TABLET PO SCH (20:45)
[2020-08-17] MEDS: ATORVASTATIN 10 MG TABLET PO SCH (22:21)
[2020-08-18] VITALS (24 sets, daily range): BP systolic 108–161; BP diastolic 57–94
[2020-08-18] MEDS: PROPOFOL 10MG/ML 50ML 50 ML IV PRN ×2 (02:03→04:42)
[2020-08-18 05:15] LABS: BASOPHILS % (AUTO) 0.1 % (0.0-2.0); EOSINOPHILS % (AUTO) 0.2 % (0.0-6.0); HEMATOCRIT 40 % (39-51); HEMOGLOBIN 13.5 g/dL (13.5-17.5); LYMPHOCYTES # (AUTO) 0.4 /CMM (0.8-4.8); LYMPHOCYTES % (AUTO) 4.6 % (20.0-44.0); MEAN CORPUSCULAR HGB CONC 34 g/dl (31.0-36.0); MEAN CORPUSCULAR VOLUME 92 fL (80-96); MONOCYTES # (AUTO) 0.7 /CMM (0.1-1.30); MONOCYTES % (AUTO) 7.3 % (2.0-12.0); NEUTROPHILS # (AUTO) 8.3 /CMM (1.8-8.9); NEUTROPHILS % (AUTO) 87.8 % (43.0-81.0); PLATELET COUNT (AUTO) 178 /CMM (150-450); RED BLOOD CELL COUNT(AUTO) 4.37 MIL/uL (4.5-6.0); WHITE BLOOD COUNT (AUTO) 9.4 K/uL (4.3-11.0)
[2020-08-18 05:54] LABS: ALANINE AMINOTRANSFERASE 36 U/L (12-78); ALBUMIN 2.2 g/dL (3.4-5.0); ALKALINE PHOSPHATASE 64 U/L (46-116); ASPARTATE AMINOTRANSFERASE 31 U/L (15-37); BILIRUBIN,DIRECT 0.2 mg/dL (0.0-0.2); BILIRUBIN,TOTAL 0.6 mg/dL (0.2-1.0); CALCIUM, SERUM 9.5 mg/dL (8.5-10.1); CARBON DIOXIDE 25 mmol/L (21-32); CHLORIDE 108 mmol/L (98-107); CREATININE 1.4 mg/dL (0.6-1.3); GLUCOSE 175 mg/dL (74-106); MAGNESIUM 2.2 mg/dL (1.8-2.4); PHOSPHORUS 3.4 mg/dL (2.5-4.9); POTASSIUM 4.2 mmol/L (3.5-5.1); SODIUM SERUM 142 mmol/L (136-145); UREA NITROGEN, BLOOD 64 mg/dL (7-18)
[2020-08-18] MEDS: ENSURE ENLIVE CHOC 237 ML CAN PO SCH ×2 (08:00→16:37)
[2020-08-18] MEDS: Z GUARD REMEDY 2 OZ OINT TP SCH (09:00)
[2020-08-18 09:07] LABS: ABG BASE EXCESS -1.9 mmol/L; ABG OXYGEN SATURATION 91.9 % (92.0-98.5); ABG PCO2 33.3 mmHg (35.0-45.0); ABG PO2 63.7 mmHg (75.0-100.0); AaDO2 183.2 mmHg; COHb 0.7 % (0.5-1.5); MetHb 0.3 % (0.0-1.5); PEEP,BG 5 cm H2O; SITE, ABG Left Radial; VENT MODE, BG SIMV 4 / PS 15; VT, ABG 500 mL
[2020-08-18] MEDS: CLOPIDOGREL BISULFATE 75 MG TABLET PO SCH (10:07)
[2020-08-18] MEDS: DULOXETINE HCL 30 MG CAPSULE.DR PO SCH (10:08)
[2020-08-18] MEDS: APIXABAN 2.5 MG TABLET PO SCH ×2 (10:08→16:31)
[2020-08-18] MEDS: DEXAMETHASONE SOD PHOSPHATE 10 MG/ML VIAL IV SCH (10:08)
[2020-08-18] MEDS: TAMSULOSIN 0.4 MG CAP.SR.24H PO SCH (10:09)
[2020-08-18] MEDS: AZITHROMYCIN 250 MG TABLET PO SCH (10:09)
[2020-08-18] MEDS: AMPHETAMINE SALTS 20 MG PO SCH ×2 (10:42→14:19)
[2020-08-18] MEDS ORDERED: KEY,NONCONTROL,TO KEEP IN PYXI 1 EA MC ONE ×2 (10:44→14:14)
[2020-08-18] MEDS: METOPROLOL TARTRATE 25 MG TABLET PO SCH ×2 (16:36→23:52)
[2020-08-18] MEDS: CEFTRIAXONE 1 G in IV D5W 50 ML IV SCH (20:14)
[2020-08-18] MEDS: ATORVASTATIN 10 MG TABLET PO SCH (21:05)
[2020-08-19] VITALS (28 sets, daily range): BP systolic 127–171; BP diastolic 70–108
[2020-08-19 04:40] LABS: BASOPHILS % (AUTO) 0.2 % (0.0-2.0); CALCIUM, SERUM 9.7 mg/dL (8.5-10.1); CARBON DIOXIDE 28 mmol/L (21-32); CHLORIDE 109 mmol/L (98-107); CREATININE 1.4 mg/dL (0.6-1.3); EOSINOPHILS % (AUTO) 0.1 % (0.0-6.0); GLUCOSE 185 mg/dL (74-106); HEMATOCRIT 42 % (39-51); HEMOGLOBIN 14.3 g/dL (13.5-17.5); LYMPHOCYTES # (AUTO) 0.4 /CMM (0.8-4.8); MAGNESIUM 2.4 mg/dL (1.8-2.4); MEAN CORPUSCULAR HGB CONC 34 g/dl (31.0-36.0); MEAN CORPUSCULAR VOLUME 91 fL (80-96); MONOCYTES # (AUTO) 0.9 /CMM (0.1-1.30); MONOCYTES % (AUTO) 7.8 % (2.0-12.0); NEUTROPHILS # (AUTO) 9.8 /CMM (1.8-8.9); NEUTROPHILS % (AUTO) 87.9 % (43.0-81.0); PHOSPHORUS 3.4 mg/dL (2.5-4.9); PLATELET COUNT (AUTO) 224 /CMM (150-450); POTASSIUM 4.5 mmol/L (3.5-5.1); RED BLOOD CELL COUNT(AUTO) 4.65 MIL/uL (4.5-6.0); SODIUM SERUM 144 mmol/L (136-145); UREA NITROGEN, BLOOD 62 mg/dL (7-18); WHITE BLOOD COUNT (AUTO) 11.1 K/uL (4.3-11.0)
[2020-08-19] MEDS: ENSURE ENLIVE CHOC 237 ML CAN PO SCH ×2 (08:00→16:49)
[2020-08-19] MEDS: TAMSULOSIN 0.4 MG CAP.SR.24H PO SCH (08:26)
[2020-08-19] MEDS: DEXAMETHASONE SOD PHOSPHATE 10 MG/ML VIAL IV SCH (08:26)
[2020-08-19] MEDS: DULOXETINE HCL 30 MG CAPSULE.DR PO SCH (08:26)
[2020-08-19] MEDS: METOPROLOL TARTRATE 25 MG TABLET PO SCH (08:27)
[2020-08-19] MEDS: APIXABAN 2.5 MG TABLET PO SCH ×2 (08:28→16:44)
[2020-08-19] MEDS: AMPHETAMINE SALTS 20 MG PO SCH ×3 (09:00→14:00)
[2020-08-19] MEDS: Z GUARD REMEDY 2 OZ OINT TP SCH (09:34)
[2020-08-19] MEDS: CARVEDILOL 12.5 MG TABLET PO SCH ×2 (14:18→16:42)
[2020-08-19] MEDS: CEFTRIAXONE 1 G in IV D5W 50 ML IV SCH (20:08)
[2020-08-19] MEDS: AZITHROMYCIN 250 MG TABLET PO SCH (20:09)
[2020-08-19] MEDS: ATORVASTATIN 10 MG TABLET PO SCH (21:23)
[2020-08-20] VITALS (21 sets, daily range): BP systolic 112–166; BP diastolic 58–88
[2020-08-20 04:27] LABS: BASOPHILS % (AUTO) 0.2 % (0.0-2.0); HEMATOCRIT 42 % (39-51); HEMOGLOBIN 14.2 g/dL (13.5-17.5); LYMPHOCYTES # (AUTO) 0.4 /CMM (0.8-4.8); LYMPHOCYTES % (AUTO) 2.7 % (20.0-44.0); MEAN CORPUSCULAR HGB CONC 33 g/dl (31.0-36.0); MEAN CORPUSCULAR VOLUME 92 fL (80-96); MONOCYTES # (AUTO) 0.9 /CMM (0.1-1.30); MONOCYTES % (AUTO) 6.6 % (2.0-12.0); NEUTROPHILS # (AUTO) 11.8 /CMM (1.8-8.9); NEUTROPHILS % (AUTO) 90.5 % (43.0-81.0); PLATELET COUNT (AUTO) 237 /CMM (150-450); RED BLOOD CELL COUNT(AUTO) 4.61 MIL/uL (4.5-6.0); WHITE BLOOD COUNT (AUTO) 13.1 K/uL (4.3-11.0)
[2020-08-20 04:43] LABS: CALCIUM, SERUM 9.9 mg/dL (8.5-10.1); CREATININE 1.3 mg/dL (0.6-1.3); POTASSIUM 4.8 mmol/L (3.5-5.1)
[2020-08-20] MEDS: ENSURE ENLIVE CHOC 237 ML CAN PO SCH (08:00)
[2020-08-20] MEDS: DEXAMETHASONE SOD PHOSPHATE 10 MG/ML VIAL IV SCH (08:15)
[2020-08-20] MEDS: TAMSULOSIN 0.4 MG CAP.SR.24H PO SCH (08:15)
[2020-08-20] MEDS: APIXABAN 2.5 MG TABLET PO SCH (08:20)
[2020-08-20] MEDS: CARVEDILOL 12.5 MG TABLET PO SCH (08:26)
[2020-08-20] MEDS: CLOPIDOGREL BISULFATE 75 MG TABLET PO SCH (08:26)
[2020-08-20] MEDS: DULOXETINE HCL 30 MG CAPSULE.DR PO SCH (08:27)
[2020-08-20] MEDS: AMPHETAMINE SALTS 20 MG PO SCH (09:00)
[2020-08-20] MEDS: Z GUARD REMEDY 2 OZ OINT TP SCH (09:37)
[2020-08-20] MEDS ORDERED: DC PROPOFOL WHEN EXTUBATED XX PRN (10:00)
[2020-08-20] MEDS: MORPHINE SULFATE INJ 4 MG/ML DISP.SYRIN IV PRN ×3 (13:55→18:00)
[2020-08-20] MEDS: LORAZEPAM INJ 2 MG/ML VIAL IVP PRN ×3 (13:55→18:00)
[2020-08-20] MEDS ORDERED: CARVEDILOL 12.5 MG TABLET PO SCH (17:00)
[2020-08-21 08:00] VITALS: BP 116/59
[2020-08-21 18:49] VITALS: BP 158/98
[2020-08-21 20:00] VITALS: BP 167/106
[2020-08-21] MEDS: LORAZEPAM INJ 2 MG/ML VIAL IVP PRN (21:57)
[2020-08-22] MEDS: MORPHINE SULFATE INJ 4 MG/ML DISP.SYRIN IV PRN (00:02)
[2020-08-22 04:00] VITALS: BP 144/85
[2020-08-22] MEDS ORDERED: KEY,NONCONTROL,TO KEEP IN PYXI 1 EA MC ONE (10:18)
[2020-08-22] MEDS: MORPHINE SULFATE PF DRIP 250 MG in IV D5W 240 ML IV PRN (10:20)
[2020-08-22 12:00] VITALS: BP 130/74
[2020-08-22 20:00] VITALS: BP 100/72
[2020-08-22 20:38] VITALS: BP 110/72
[2020-08-23 08:00] VITALS: BP_SYST 84; BP_SYST 86; BP_DIAS 50
[2020-08-23] MEDS ORDERED: KEY,NONCONTROL,TO KEEP IN PYXI 1 EA MC ONE ×2 (10:00→12:51)
[2020-08-23 12:00] VITALS: BP 89/55
[2020-08-23] MEDS: MORPHINE SULFATE PF DRIP 250 MG in IV D5W 240 ML IV PRN (12:56)
[2020-08-23 20:00] VITALS: BP 75/49
[2020-08-24 08:00] VITALS: BP 59/36
[2020-08-24] MEDS ORDERED: KEY,NONCONTROL,TO KEEP IN PYXI 1 EA MC ONE (12:14)
[2020-08-24] MEDS: MORPHINE SULFATE PF DRIP 250 MG in IV D5W 240 ML IV PRN (12:15)
[2020-08-24 20:00] VITALS: BP 64/32
[2020-08-24 20:14] VITALS: BP 64/32
[2020-08-25] MEDS ORDERED: KEY,NONCONTROL,TO KEEP IN PYXI 1 EA MC ONE (02:53)
== END 2020-08-25 | disposition expired | DRG 870 ==
LOC: ER 16:33 → MEDSG1 20:36 → TELE1 08-11 00:52 → ICU 08-14 13:48 → ICUOV 08-18 06:53 → ICU 08-18 17:41 → MEDSG2 08-20 18:15 → HOSPICE1 08-22 11:50 → MEDSG1 08-24 12:12
PROVIDERS: ADMIT Nurse Practitioner Acute Care; ATTEND Internal Medicine
PROC: 5A1955Z Respiratory Ventilation, Greater than 96 Consecutive Hours (ICD-10-PCS; principal; 2020-08-14)
PROC: 0BH18EZ Insertion of Endotracheal Airway into Trachea, Via Natural or Artificial Opening Endoscopic (ICD-10-PCS; 2020-08-14)
PROC: XW033E5 Introduction of Remdesivir Anti-infective into Peripheral Vein, Percutaneous Approach, New Technology Group 5 (ICD-10-PCS; 2020-08-14)
DX: A41.89 Other specified sepsis (principal); U07.1 COVID-19; I21.A1 Myocardial infarction type 2; G93.41 Metabolic encephalopathy; R65.21 Severe sepsis with septic shock; J12.82 Pneumonia due to coronavirus disease 2019; I50.23 Acute on chronic systolic (congestive) heart failure; N17.0 Acute kidney failure with tubular necrosis; J96.01 Acute respiratory failure with hypoxia; E87.0 Hyperosmolality and hypernatremia; N17.9 Acute kidney failure, unspecified; E87.1 Hypo-osmolality and hyponatremia; N13.8 Other obstructive and reflux uropathy; I42.9 Cardiomyopathy, unspecified; Z51.5 Encounter for palliative care; Z66 Do not resuscitate; I48.91 Unspecified atrial fibrillation; I25.10 Atherosclerotic heart disease of native coronary artery without angina pectoris; E83.52 Hypercalcemia; E86.0 Dehydration; E11.9 Type 2 diabetes mellitus without complications; D75.1 Secondary polycythemia; E86.1 Hypovolemia; E86.9 Volume depletion, unspecified; F12.90 Cannabis use, unspecified, uncomplicated; Z79.899 Other long term (current) drug therapy; N40.1 Benign prostatic hyperplasia with lower urinary tract symptoms; Z95.1 Presence of aortocoronary bypass graft; Z79.02 Long term (current) use of antithrombotics/antiplatelets; Z79.01 Long term (current) use of anticoagulants; W18.30XA Fall on same level, unspecified, initial encounter; Y92.9 Unspecified place or not applicable
CPT/HCPCS: 31720; 36415; 36600; 70450-TC; 71045-TC; 80048-TC; 80061-TC; 80076-TC; 81001; 82140-TC; 82803-TC; 83690-TC; 83735-TC; 84100-TC; 84484-TC; 85025-TC; 85378-TC; 85610-TC; 85730-TC; 86140-TC; 87081-TC; 93308-TC; 94002-TC; 94003-TC; 94762-TC; 94799-TC; 97112-TC; 97116-TC; 97530-TC; 99082-TC; A4216; A6403; C9803; G0378; J0330; J0696; J1100; J1644; J1940; J2060; J2270; J2274; J3490; J7030; J7040; J7050; J7060; U0003